=== PATIENT | male | born 1980 | race Caucasian/White ===

== ENCOUNTER 2019-01-29 13:16 | Emergency (ER) | payer SELFPAY ==
[~2019-01-29] VITALS: Ht 172.7 cm; Wt 66.4 kg
[2019-01-29 13:23] VITALS: BP 129/84; PULSE 59; RESP 18; Ht 172.7 cm; Wt 66.4 kg
== END 2019-01-29 14:29 | disposition left against medical advice (07) ==
LOC: FTE 13:16
DX: Z53.21 Procedure and treatment not carried out due to patient leaving prior to being seen by health care provider (principal)